=== PATIENT | male | born 1935 | race Caucasian/White ===

== ENCOUNTER 2016-10-20 08:49 | Day surgery (SDC) | payer MEDICARE, BC ==
[~2016-10-20 08:49] MED LIST: ASAB PO; BRILINTA90 MG PO; C5 PO; CARDU2 PO; CARDURA1 MG PO; CELEBREX2 PO; DEMA20 PO; DOX10 PO; EZFE 200200 MG PO; INDE80LA PO; KDUR20 PO; LOP25 PO; LOP50 PO; LOVAZA1 GM PO; MTX2.5 PO; NEUR600 PO; NIASPAN500 PO; NITROSTAT0.4 MG SL; P1 PO; PRAVACHOL40 MG PO; PRIM50B PO; PRIN20 PO; PROSCAR5 PO; REQUIP1 PO; ROCALTROL 0.0.25 MCG OR; VITD PO; XARELTO20 MG PO; Z300 PO; [UNRECOGNIZED DRUG - OTHER]; [UNRECOGNIZED DRUG - OTHER] PO
[2016-10-20 09:33] LABS: MEAN CORPUSCULAR HEMOGLOB 34.1 pg (26.0-34.0); MEAN CORPUSCULAR VOLUME 103.4 fL (80-100); PLATELET COUNT 93 10/3/uL (150-400); RBC DISTRIBUTION WIDTH 14.8 % (12.0-16.0); RED CELL COUNT 2.93 10/6/uL (4.7-6.1); RETICULOCYTE COUNT 0.9 % (0.5-2.5); RETICULOCYTE COUNT ABSOLUTE 26.1 10/3/uL (20.2-119.8); WHITE BLOOD CELLS 1.9 10/3/uL (4.5-10.5)
[2016-10-20 09:34] LABS: HEMATOCRIT 30.3 % (40.0-51.0)
[2016-10-20 09:35] LABS: MANUAL DIFF YES %
[2016-10-20 09:48] LABS: BUN (BLOOD UREA NITROGEN) 24 MG/DL (6-23); CALCIUM, SERUM 8.3 MG/DL (8.5-10.4); CHLORIDE, SERUM 112 MMOL/L (96-112); CO2 (CARBON DIOXIDE) 22 MMOL/L (24-34); CREATININE 1.36 MG/DL (0.70-1.30); GFR AFRICAN AMERICAN 57 ML/MIN (>=60); GFR NON AFRICAN AMERICAN 49 ML/MIN (>=60); GLUCOSE, SERUM 91 MG/DL (60-99); POTASSIUM, SERUM 4.2 MMOL/L (3.5-5.3); SODIUM, SERUM 143 MMOL/L (135-148)
[2016-10-20 10:17] LABS: BAND NEUTROPHILS 6 %; IMMATURE GRANS ABSOLUTE (CALC) 0.04 10/3/uL (0.0-0.11); LYMPHOCYTES 58 %; METAMYELOCYTES 2 %; MONOCYTES 22 %; MONOCYTES ABSOLUTE (CALC) 0.42 10/3/uL (0.21-1.20); NEUTROPHILS ABSOLUTE (CALC) 0.34 10/3/uL (2.02-8.40); SEGMENTED NEUTROPHIL (0) 12 %; TOTAL NUCLEATED CELLS 100
[2016-10-20 10:18] LABS: MACROCYTES 1+ (5-10/OIF) (0-5/OIF); PLATELET ESTIMATE DEC (ADEQUATE)
== END 2016-10-20 11:49 | disposition home or self-care (01) ==
LOC: SDC 08:49
PROVIDERS: Anesthesiology; Pathology Cytopathology
PROC: 07DR3ZX Extraction of Iliac Bone Marrow, Percutaneous Approach, Diagnostic (ICD-10-PCS; principal; 2016-10-20 11:00)
DX: D61.818 Other pancytopenia (principal); I12.9 Hypertensive chronic kidney disease with stage 1 through stage 4 chronic kidney disease, or unspecified chronic kidney disease; N18.9 Chronic kidney disease, unspecified; I25.10 Atherosclerotic heart disease of native coronary artery without angina pectoris; I25.2 Old myocardial infarction; M10.9 Gout, unspecified; E03.9 Hypothyroidism, unspecified; E78.5 Hyperlipidemia, unspecified; K50.90 Crohn's disease, unspecified, without complications; M19.90 Unspecified osteoarthritis, unspecified site; G47.33 Obstructive sleep apnea (adult) (pediatric); E66.9 Obesity, unspecified; Z68.35 Body mass index [BMI] 35.0-35.9, adult; Z88.0 Allergy status to penicillin; Z90.89 Acquired absence of other organs; Z88.2 Allergy status to sulfonamides; Z88.5 Allergy status to narcotic agent; Z88.8 Allergy status to other drugs, medicaments and biological substances; Z86.718 Personal history of other venous thrombosis and embolism; Z87.891 Personal history of nicotine dependence; Z87.01 Personal history of pneumonia (recurrent); Z87.442 Personal history of urinary calculi; Z96.1 Presence of intraocular lens; Z95.5 Presence of coronary angioplasty implant and graft; Z98.41 Cataract extraction status, right eye; Z98.42 Cataract extraction status, left eye; Z90.49 Acquired absence of other specified parts of digestive tract; Z93.2 Ileostomy status; Z79.82 Long term (current) use of aspirin; Z79.52 Long term (current) use of systemic steroids; Z79.899 Other long term (current) drug therapy; Z98.890 Other specified postprocedural states
CPT/HCPCS: 80048; 85025; 85045; 88184; 88185; 88237; 88264; 88280; 88305; 88311; 88313; 88341; 88342; J2370